=== PATIENT | female | born 1980 | race Caucasian/White ===

== ENCOUNTER 2020-12-31 21:28 | Emergency (ER) | payer BC ==
[~2020-12-31 21:28] MED LIST: COLACE 100MG C100 MG PO; IBUPROFEN600 MG PO; LODINE CAP 300300 MG PO; LORTAB 5-325 M1 EACH PO; PRENATAL TABLE1 EAC1 PO; ZOFRAN ODT 4 MG4 MG PO; ZYRTEC10 MG PO
[2020-12-31 22:52] LABS: HEMOGLOBIN 14.6 gm/dl (12.3-15.3); RED BLOOD COUNT 4.61 M/UL (4.00-5.10); WHITE BLOOD COUNT 9.9 K/UL (4.5-11.0)
[2020-12-31 23:10] LABS: BUN/CREATININE RATIO 17 (0-10)
[2021-01-01] MEDS ORDERED: ZOFRAN ODT 4 MG4 MG SL (01:01)
[2021-01-01] MEDS ORDERED: HYDROCODON-ACE1 EAC4 PO (01:01)
[2021-01-01] MEDS ORDERED: AUGMENTIN 875-1 EACH PO (01:01)
[2021-01-13] MEDS ORDERED: SPIRONOLACTONE50 MG PO (14:43)
[2021-01-13] MEDS ORDERED: ZYRTEC10 MG PO (14:44)
[2021-01-13] MEDS ORDERED: SPRINTEC 28 DA1 EACH PO (14:44)
[2021-01-13] MEDS ORDERED: [UNRECOGNIZED DRUG - OTHER] PO (14:45)
[2021-01-19] MEDS ORDERED: HYDROCODON-ACE1 EAC4 PO (12:25)
== END 2021-01-01 01:15 | disposition home or self-care (01) ==
LOC: ER1 21:28
PROVIDERS: Emergency Medicine
DX: K80.50 Calculus of bile duct without cholangitis or cholecystitis without obstruction (principal)
CPT/HCPCS: 80053; 81001; 83690; 84703; 85025; 87086; 96374; 96375; 99284; J2270; J2405; Q9967

== ENCOUNTER → 2021-01-06 | Outpatient (CLI) | payer BC ==
[~2021-01-06] MED LIST changes: +AUGMENTIN 875-1 EACH PO; +HYDROCODON-ACE1 EAC4 PO; +SPIRONOLACTONE50 MG PO; +SPRINTEC 28 DA1 EACH PO; +ZOFRAN ODT 4 MG4 MG SL; +[UNRECOGNIZED DRUG - OTHER] PO
== END ==
LOC: US 09:20
DX: K81.9 Cholecystitis, unspecified (principal)
CPT/HCPCS: 76705

== ENCOUNTER → 2021-01-19 | Day surgery (SDC) | payer BC ==
[2021-01-19 09:33] LABS: BUN/CREATININE RATIO 14 (0-10)
== END | disposition home or self-care (01) ==
LOC: OR 08:35
PROVIDERS: Surgery
DX: K81.2 Acute cholecystitis with chronic cholecystitis (principal); F41.9 Anxiety disorder, unspecified; Z88.2 Allergy status to sulfonamides; Z79.899 Other long term (current) drug therapy
CPT/HCPCS: 36415; 80048; 84703; J0690; J1100; J1885; J2001; J2250; J2405; J2704; J2710; J3010; J7030; J7120